=== PATIENT | female | born 1980 | race Caucasian/White ===

== ENCOUNTER → 2019-10-10 | Outpatient (CLI) | payer OTHER ==
[~2019-10-10] MED LIST: FENUGREEK500 MG PO; HYDROCODON-ACE1 EAC7 PO; IBUPROFEN 600600 M1 PO; IBUPROFEN 800800 M1 PO; MULTIVITAMINS PO; NORCO 5-325 TA1 EACH PO; PEPCID40 MG PO; PRENATAL; PRENATAL COMPL1 EACH PO; PRENATAL PO; ZOFRAN4 MG PO
== END ==
LOC: LAB 09:57
PROVIDERS: ATTEND Family Medicine
DX: Z20.828 Contact with and (suspected) exposure to other viral communicable diseases (principal)